=== PATIENT | male | born 1965 | race American Indian/Alaskan Native ===

== ENCOUNTER 2016-11-12 13:36 | Emergency (ER) | payer SELFPAY ==
[2016-11-12 14:58] VITALS: BP 147/105
--- NOTE | 2016-11-12 15:23 | Emergency Department Report ---
ED Medical Clearance HPI - General Chief complaint: Medical Clearance Stated complaint: TESTING FOR MENGINTITIS Time Seen by Provider: 11/12/16 15:16 Source: patient Mode of arrival: Ambulatory - History of Present Illness Initial comments: 51-year-old male with past medical history HTN none presents sent by ED staff for prophylaxis against possible bacterial meningitis exposure. There is currently a patient in the ED who is being treated for bacterial meningitis and Mr. Watts may have been an vicinity of this patient's room. Nursing staff is directing patient's to be triaged and offered prophylaxis for bacterial meningitis. This patient is awake alert and oriented 3 he understands the clinical scenario and I informed him that the [place] [facility] has communicated with Dr. Garcia and the current recommendations are to not prophylaxis unless he came in to bodily contact with bodily fluids of this sick patient or to offer him treatment. Patient states he is interested in prophylactic treatment. I offered him 2 days of rifampin, 1 dose of Cipro orally 1 dose of IM ceftriaxone and patient elected 1 dose of IM ceftriaxone -: This morning ED Review of Systems ROS: Stated complaint: TESTING FOR MENGINTITIS Other details as noted in HPI Constitutional: denies: chills, fever Eyes: denies: eye pain, eye discharge, vision change ENT: denies: ear pain, throat pain Respiratory: denies: cough, shortness of breath, wheezing Cardiovascular: denies: chest pain, palpitations Endocrine: no symptoms reported Gastrointestinal: denies: abdominal pain, nausea, diarrhea Genitourinary: denies: urgency, dysuria Musculoskeletal: denies: back pain, joint swelling, arthralgia Skin: denies: rash, lesions Neurological: denies: headache, weakness, paresthesias Psychiatric: denies: anxiety, depression Hematological/Lymphatic: denies: easy bleeding, easy bruising ED Past Medical Hx - Past Medical History Previous Medical History?: Yes Hx Hypertension: Yes - Surgical History Past Surgical History?: Yes Additional Surgical History: knee - Social History Smoking Status: Never Smoker Substance Use Type: None ED Physical Exam - General Limitations: No Limitations General appearance: alert, in no apparent distress - Head Head exam: Present: atraumatic, normocephalic - Eye Eye exam: Present: normal appearance - ENT ENT exam: Present: mucous membranes moist - Neck Neck exam: Present: normal inspection - Respiratory Respiratory exam: Present: normal lung sounds bilaterally. Absent: respiratory distress - Cardiovascular Cardiovascular Exam: Present: regular rate, normal rhythm. Absent: systolic murmur, diastolic murmur, rubs, gallop - GI/Abdominal GI/Abdominal exam: Present: soft, normal bowel sounds - Rectal Rectal exam: Present: deferred - Extremities Exam Extremities exam: Present: normal inspection - Back Exam Back exam: Present: normal inspection - Neurological Exam Neurological exam: Present: alert, oriented X3 - Psychiatric Psychiatric exam: Present: normal affect, normal mood - Skin Skin exam: Present: warm, dry, intact, normal color. Absent: rash ED Course Vital Signs 11/12/16 14:56 Temperature 98.9 F Pulse Rate 69 Respiratory 16 Rate Blood Pressure 147/105 O2 Sat by Pulse 98 Oximetry ED Medical Decision Making - Medical Decision Making A/P: Prophylaxis against bacterial meningitis 1-patient educated on subject and given CDC guideline recommendations on prophylaxis for bacterial meningitis 2-1 dose of IM 250 mg ceftriaxone given as acceptable regimen for prophylaxis as per CDC guidelines https://www.cdc.gov/mmwr/preview/mmwrhtml/11126109.htm 3-I advised patient to follow up with his primary doctor ED Disposition Clinical Impression: Need for prophylactic antibiotic Disposition: DC-01 TO HOME OR SELFCARE Is pt being admited?: No Does the pt Need Aspirin: No Condition: Stable Instructions: Postexposure Prophylaxis (ED) Referrals: HUNTER MUNIZ MD [Staff Physician] - 3-5 Days Forms: Work/School Release Form(ED) Time of Disposition: 15:20
[2016-11-12] MEDS ORDERED: XYLOCAINE 1% MPF 5 mL INFILTRATI ONE (15:31)
[2016-11-12] MEDS ORDERED: ROCEPHIN IM ONE (15:31)
== END 2016-11-12 16:15 | disposition home or self-care (01) ==
LOC: ED 13:36
DX: Z29.8 Encounter for other specified prophylactic measures (principal); I10 Essential (primary) hypertension
CPT/HCPCS: 96372; 99282; J0696